=== PATIENT | female | born 1975 | race Caucasian/White ===

== ENCOUNTER 2021-09-17 00:32 | Emergency (ER) | payer MEDICARE, SELFPAY ==
--- NOTE | ~2021-09-17 | XR_ITS ---
EXAMINATION: XR wrist RT min 3V, XR hand RT min 3V EXAM DATE: 09/17/2021 04:53 INDICATION: pain status post fall, SWELLING . TECHNIQUE: Right hand frontal, lateral and oblique projections obtained and reviewed. Right wrist fro ntal, frontal with ulnar deviation, oblique and lateral projections obtained and reviewed. There is no prior study for comparison. FINDINGS: There is acute closed posttraumatic nondisplaced right radial distal metaphyseal fracture, overlying swelling. This extends into the distal radial ulnar joint, possibly into the radiocarpal brandie int. There is swelling overlying the dorsal aspect of the hand, the metacarpal bones without a metaca rpal fracture identified. Right wrist scapholunate joint space is maintained. IMPRESSION: Right radial distal metaphyseal acute fracture into DRUJ, possibly radiocarpal joint as well. Hand swelling. Reviewed, dictated and finalized at location . TUFTER IMPRESSION: Right radial distal metaphyseal acute fracture into DRUJ, possibly radiocarpal joint as well. Hand swelling.
--- NOTE | ~2021-09-17 | XR_ITS ---
EXAMINATION: XR knee RT 3V EXAM DATE: 09/17/2021 04:53 INDICATION: pain status post fall . TECHNIQUE: Three projections of the right knee. There is no prior study for comparison. FINDINGS: No evidence osteochondral defect or joint body in the right knee joint. There are no acut e right knee fractures or dislocations identified. There is no subcutaneous gas. There is soft tissu e swelling over the knee anteriorly. No joint effusion. There are no radiopaque foreign bodies. IMPRESSION: 1. XR knee RT 3V exam without acute osseous findings. Reviewed, dictated and finalized at location G. T GROWER
[2021-09-17 00:38] VITALS: BP 131/82; PULSE 110; RESP 20; TEMP 36.3; O2SAT 97
[2021-09-17 03:58] VITALS: BP 134/75; PULSE 115; RESP 18; O2SAT 100
--- NOTE | 2021-09-17 05:07 | ED_ITS ---
HPI - General Adult General Chief complaint: Extremity Injury, Upper Stated complaint: fall - right wrist/hand injury Time Seen by Provider: 09/17/21 04:13 History of Present Illness HPI narrative: Patient 46-year-old female presents the emergency department with chief complaint of right hand/wrist pain. Patient reports that she tripped and fell landed on her right outstretched hand reports that she has swelling and pain in the dorsum of the right hand and reports she has pain in the right wrist the patient also reports she has bruising in her right knee. Patient states pain is worse with movement and improved with rest. Review of Systems Review of Systems: A 10 system review of systems was completed on the patient and is negative except for what is stated in the HPI. Nursing and ancillary documentation was reviewed. Exam Narrative: GENERAL: Well-appearing, well-nourished, and in no acute distress. HEAD: Normocephalic, atraumatic. EYES: PERRLA and EOMI. ENT: Nares clear, no rhinorrhea or epistaxis. Mucous membranes moist. NECK: Supple. CHEST: Clear to auscultation. No respiratory distress. HEART: Regular rate and rhythm. No murmur heard. Normal peripheral pulses. ABDOMEN: Soft, nontender, nondistended, normal active bowel sounds. EXTREMITIES: Normal range of motion. No edema. Right hand there is contusion present on the dorsum of the right hand there is tenderness to palpation of the right wrist. Right knee there is a bruise on the dorsum of the knee the patella. SKIN: Warm, dry, no rash. NEURO: No focal deficits. Alert and oriented x3. PSYCH: Normal mood and affect. Course Course Emergency Course: Hand and wrist x-ray shows evidence of a nondisplaced distal radius fracture Knee x-ray shows no evidence of fracture Vital Signs Vital signs: Vital Signs Temperature 36.3 C L 09/17/21 00:38 Pulse Rate 110 H 09/17/21 00:38 Respiratory Rate 20 09/17/21 00:38 Blood Pressure 131/82 09/17/21 00:38 Pulse Oximetry 97 09/17/21 00:38 Temperature 36.3 C L 09/17/21 00:38 Pulse Rate 115 H 09/17/21 03:58 Respiratory Rate 18 09/17/21 03:58 Blood Pressure 134/75 09/17/21 03:58 Pulse Oximetry 100 09/17/21 03:58 Medical Decision Making Vital Signs Vital Signs: Vital Signs Temperature 36.3 C L 09/17/21 00:38 Pulse Rate 110 H 09/17/21 00:38 Respiratory Rate 20 09/17/21 00:38 Blood Pressure 131/82 09/17/21 00:38 Pulse Oximetry 97 09/17/21 00:38 Temperature 36.3 C L 09/17/21 00:38 Pulse Rate 115 H 09/17/21 03:58 Respiratory Rate 18 09/17/21 03:58 Blood Pressure 134/75 09/17/21 03:58 Pulse Oximetry 100 09/17/21 03:58 Discharge Plan Discharge Clinical Impression: Contusion of hand, right, Distal radius fracture, right, Contusion of knee, right Patient Disposition: Home, Self-Care Condition: Stable Instructions: Antibiotic Form, Wrist Fracture in Adults (ED), How to Use a Sling (ED), Hematoma (ED), Splint Care (ED) Follow-up/Referrals: Jeff Bee MD [Physician] - [facility],Fadi Rothman MD [Primary Care Provider] - Time of Disposition: 05:11
--- NOTE | 2021-09-23 07:04 | PC.NURSE ---
RBVO for 09/17/21 @ [address] rico: short arm splint rt side prior to d/c
== END 2021-09-17 05:45 | disposition home or self-care (01) ==
PROVIDERS: Emergency Provider Emergency Medicine; PCP Family Medicine
DX: S59.291A Other physeal fracture of lower end of radius, right arm, initial encounter for closed fracture (principal); S60.221A Contusion of right hand, initial encounter; S80.01XA Contusion of right knee, initial encounter; W01.0XXA Fall on same level from slipping, tripping and stumbling without subsequent striking against object, initial encounter
CPT/HCPCS: 29125; 73110; 73130; 73562; 99284; A4565

== ENCOUNTER 2022-07-12 15:24 | Inpatient (IN) | payer MEDICARE, SELFPAY ==
[2022-07-12] VITALS (24 sets, daily range): BP systolic 118–161; BP diastolic 80–95; PULSE 69–95; RESP 12–19; TEMP 36.3–37.2; O2SAT 83–100; BMI 16.8
--- NOTE | ~2022-07-12 | US_ITS ---
EXAMINATION: US abdomen limited DATE: 07/13/2022 12:20 INDICATION: Abnormal liver function tests. TECHNIQUE: Multiple grayscale and Doppler ultrasound images of the abdomen were obtained. COMPARISON: None FINDINGS: The visualized portions of the head and body of the pancreas are normal. The liver is gaston l without focal lesion. No liver surface nodularity. There is normal flow in main portal vein. The ga llbladder is absent. The common duct is normal and measures 4 mm. IMPRESSION: 1. Normal right upper quadrant ultrasound status post cholecystectomy. Reviewed, dictated and finalized at location A.
[2022-07-12 16:20] LABS: Alanine Aminotransferase 40 U/L (6-35); Albumin Level 3.8 g/dL (3.5-5.1); Alkaline Phosphatase 154 U/L (38-126); Anion Gap 15 mmol/L (8-16); Aspartate Amino Transferase 45 U/L (14-36); Bilirubin,Total 0.2 mg/dL (0.2-1.3); Blood Urea Nitrogen 25 mg/dL (7-17); Calcium 9.2 mg/dL (8.4-10.2); Carbon Dioxide 39 mmol/L (22-30); Chloride 87 mmol/L (98-107); Estimated CRCL calculation 58 ml/min; Estimated Glomerular Filt Rate > 60; Glucose 84 mg/dL (65-110); Potassium < 2.0 mmol/L (3.4-5.0); Sodium 141 mmol/L (137-145)
--- NOTE | 2022-07-12 16:21 | ECG_ITS ---
Measurements Intervals [place] Rate: 89 P: 70 [place]: 130 QRS: 71 QRSD: 102 T: 68 QT: 435 QTc: 531 Interpretive Statements SINUS RHYTHM NONSPECIFIC ST & T-WAVE ABNORMALITY-DIFFUSE LEADS PROLONGED QT INTERVAL BASELINE ARTIFACT- I, III, AVR, AVL, AVF, V2-V2 ABNORMAL ECG NO PREVIOUS ECG AVAILABLE FOR COMPARISON Electronically Signed On 07-12-2022 21:04:00 CDT by Clarence Mandel D.O.
[2022-07-12] MEDS: POTASSIUM CHLORIDE 20 MEQ PACKET (FOR LIQUID) 80 MEQ PO (16:38)
--- NOTE | 2022-07-12 16:39 | ED.GENADULT ---
HPI - General Adult General Chief complaint: Recheck/Abnormal Lab/Rx Stated complaint: low potassium level Time Seen by Provider: 07/12/22 16:20 History of Present Illness HPI narrative: 47-year-old female with history of viral meningitis, persistent daily headaches, IBS presented the emergency room for evaluation of a low potassium. Patient had follow-up with her primary care physician with routine labs and was found to have low potassium. Patient states that she does have multiple medical issues that bother her daily but felt that in general she was feeling fine. Patient states she was having some lower extremity edema so she did take a Lasix pill this morning patient states she does not take Lasix daily. Patient reports she has had previous issues with low potassium and stated that the last time she had a potassium infusion at worsened her nerve pain . Related Data Home Medications Medication Instructions Recorded Confirmed Unable to Obtain Home Medications 10/04/21 10/11/21 Allergies Allergy/AdvReac Type Severity Reaction Status Date / Time No Known Allergies Allergy Verified 07/12/22 15:25 Review of Systems Review of Systems: CONSTITUTIONAL: Denies fever, chills, or sweats. EYES: Denies visual changes, redness, or discharge. ENT: Denies rhinorrhea, congestion, sore throat, or otalgia. CARDIOVASCULAR: Denies chest pain, palpitations, or edema. RESPIRATORY: Denies cough or dyspnea. GASTROINTESTINAL: Denies abdominal pain, nausea, vomiting, or diarrhea. GENITOURINARY: Denies dysuria or hematuria. SKIN: Denies rash or itching. MUSCULOSKELETAL: Denies back pain, joint pain, or myalgia. NEUROLOGIC: Denies headache, numbness, or weakness. [facility] Past Medical History Medical History Abdominal pain Anxiety Chronic headaches Claustrophobia Constipation Depression Diarrhea DVT (deep venous thrombosis) Gastric ulcer History of anesthesia problem Hx of viral meningitis IBS (irritable bowel syndrome) Insomnia MRSA (methicillin resistant staph aureus) culture positive Nausea & vomiting Opioid dependence Pneumonia Vision changes Family History Family History Other Arthritis HLD (hyperlipidemia) Heart disease Hypertension Kidney disorder Social History Social History Alcohol intake: current Substance use: never Substance use type: does not use Additional occupation/education comments: Disabled Gender identity (if verbalized by the patient): Female Exam Narrative: APPEARANCE: Well appearing, no pain, no distress, well-nourished. HEAD: normocephalic, atraumatic. EYES: PERRLA/EOMI, conjunctivae clear. NOSE: Normal no drainage NECK: Supple. No adenopathy, no masses. RESPIRATORY: Airway patent, respirations nonlabored. Clear to auscultation bilaterally, no rales, rhonchi, wheezing. CARDIOVASCULAR: Regular rate and rhythm without murmurs rubs or gallops. ABDOMINAL: Soft, nontender, nondistended, normal bowel sounds MUSCULOSKELETAL: Moves all extremities. Strength/ROM intact, No edema, No calf tenderness. NEURO: Alert. Cranial nerves II through XII intact. Grossly intact SKIN: Warm, dry. Normal Color Course Course Emergency Course: Patient's potassium was repleted both orally and through IV. Patient does have a leukocytosis of 17.2. Patient is afebrile. Patient's CMP is within normal limits and UA shows no evidence of urinary tract infection. Case was discussed with hospitalist patient was accepted to the IMU. Vital Signs Vital signs: Vital Signs Temperature 98.9 F 07/12/22 15:37 Pulse Rate 85 07/12/22 15:37 Respiratory Rate 14 07/12/22 15:37 Blood Pressure 156/80 H 07/12/22 15:37 Pulse Oximetry 97 07/12/22 15:37 Oxygen Delivery Room Air 07/12/22 15:37 Temperature 98.9 F 07/12/22 15:37 P
[2022-07-12 16:48] LABS: Basophils Absolute Auto 0.1 K/mm3 (0.0-0.1); Basophils Percent Auto 0.6 % (0.2-1.2); Eosinophils Absolute Auto 0.3 K/mm3 (0-0.3); Eosinophils Percent Auto 1.6 % (0-4.4); Hematocrit 36.5 % (37.0-47.0); Hemoglobin 11.5 g/dL (12.0-15.0); Immature Granulocyte Absolute 0.08 K/mm3 (0.00-0.031); Immature Granulocyte Percent A 0.5 % (0-0.5); Lymphocytes Absolute Auto 3.22 K/mm3 (0.9-3.2); Lymphocytes Percent Auto 18.8 % (18.3-44.2); Mean Corpuscular HGB Conc 31.5 g/dl (32-36); Mean Corpuscular Hemoglobin 29.7 pg (26-34); Mean Corpuscular Volume 94.3 fl (80-100); Mean Platelet Volume 9.2 fl (7.4-10.4); Monocytes Absolute Auto 1.2 K/mm3 (0.1-0.6); Monocytes Percent Auto 7.2 % (2.6-8.5); Neutrophils Absolute Auto 12.2 K/mm3 (1.3-6.7); Neutrophils Percent Auto 71.3 % (45.5-73.1); Platelet Count Result 492 k/mm3 (150-375); Red Blood Count 3.87 M/mm3 (4.2-5.4); Red Cell Distribution Width 15.6 % (11.5-14.5); White Blood Count 17.2 K/mm3 (4.5-10.0)
[2022-07-12 17:03] LABS: Alanine Aminotransferase 40 U/L (6-35); Albumin Level 3.7 g/dL (3.5-5.1); Alkaline Phosphatase 150 U/L (38-126); Aspartate Amino Transferase 51 U/L (14-36); Bilirubin,Total 0.2 mg/dL (0.2-1.3); Blood Urea Nitrogen 25 mg/dL (7-17); Carbon Dioxide > 40 mmol/L (22-30); Chloride 87 mmol/L (98-107); Estimated CRCL calculation 52 ml/min; Estimated Glomerular Filt Rate 59; Glucose 97 mg/dL (65-110); Magnesium 1.8 mg/dL (1.6-2.3); Phosphorus 4.1 mg/dL (2.5-4.5); Potassium < 2.0 mmol/L (3.4-5.0); Sodium 142 mmol/L (137-145)
[2022-07-12 17:28] LABS: Appearance Urine Clear (Clear); Bilirubin Urine Negative (Negative); Blood Urine 2+ (Negative); Color Urine Yellow (Yellow); Glucose Urine UA Negative (Negative); Ketones Urine Negative (Negative); Leukocyte Esterase Ur Negative LEU/UL (Negative); Nitrate Urine Negative (Negative); Protein Urine Trace mg/dL (Negative); Specific Grav Ur 1.015 (1.001-1.035); Urobilinogen Urine 0.2 mg/dL (<2.0)
[2022-07-12 17:37] LABS: Mucus Urine Rare /lpf; Squamous Epithelial Cell Urine Rare /hpf (Few); WBC Urine 0-3 /hpf
[2022-07-12] MEDS: KCL 20 MEQ/SW 100 ML 100 ML 50 MEQ IVPB (17:39)
[2022-07-12 17:42] LABS: Add Urine Microscopic? YES
[2022-07-12 17:54] LABS: Thyroid Stimulating Hormone Reflex 0.724 uIU/mL (0.465-4.68)
--- NOTE | 2022-07-12 19:17 | PM.IMHP ---
H&P: HPI History of Present Illness Date/Time: 07/12/22 19:17 Chief Complaint: Abnormal lab Narrative: This is a 47-year-old female patient has a history of viral meningitis with a residual of daily headaches. The patient stated that she occasionally takes Lasix for her lower extremity edema. She took Lasix earlier this morning. The patient had a follow-up visit with her primary care doctor who ran some routine labs the patient stated that she has had previous issues with low potassium. The patient stated she has chronic nerve pain from her meningitis. Her white count is found to be 17.2. H&H 11.5 and 36.5. Her potassium initially was 2.0. She was given IV potassium and oral potassium. Repeat potassium was listened 2.0. AST is 51 ALT is 40 alkaline phosphatase 150. She is negative for COVID. She denies any nausea vomiting or diarrhea. Patient is being admitted to inpatient status on the date of service of 07/12/2022. Review of Systems Review of Systems: See HPI All systems reviewed & are unremarkable except as noted in HPI and below Constitutional: Constitutional: Reports as per HPI and Reports no additional constitutional complaints Eyes: Eyes: Reports as per HPI and Reports no additional eye complaints ENT: Reports system reviewed and no additional complaints, except as documented and Reports Normal hearing present Cardiovascular: Cardiovascular: Reports no additional cardiovascular complaints Respiratory: Respiratory: Reports no additional respiratory complaints and Reports no additional respiratory complaints Gastrointestinal: Gastrointestinal: Reports as per HPI and Reports no additional gastrointestinal complaints Musculoskeletal: Musculoskeletal: Reports no additional musculoskeletal complaints Integumentary/Breasts: Skin/Breast: Reports system reviewed and no additional complaints, except as docu and Reports as per HPI Neurologic: Reports system reviewed and no additional complaints, except as documented, Reports as per HPI and Reports Normal hearing present Psychiatric: Psychiatric: Reports no additional psychiatric complaints and Reports as per HPI Endocrine: Endocrine: Reports no additional endocrine complaints Hematologic/Lymphatic: Hematologic/Lymphatic: Reports no additional hematologic/lymphatic complaints Allergic/Immunologic: Allergic/Immunologic: Reports no additional allergic/immunologic complaints [facility] Past Medical History Medical History Anxiety Chronic headaches 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 Claustrophobia Constipation Depression Diarrhea DVT (deep venous thrombosis) Edema Gastric ulcer History of anesthesia problem Hx of viral meningitis IBS (irritable bowel syndrome) Insomnia MRSA (methicillin resistant staph aureus) culture positive Nausea & vomiting Opioid dependence Pneumonia PTSD (post-traumatic stress disorder) Vision changes Surgical History Surgical History H/O gastric bypass H/O hernia repair H/O hysterectomy with oophorectomy S/P cholecystectomy Family History Family History Other Arthritis HLD (hyperlipidemia) Heart disease Hypertension Kidney disorder Social History Social History (Updated 07/12/22 @ 21:29 by Urmila Albarran NP) Social History: She lives with her parents . She is disabled. Her dad is her poa. She is single and has no children. She denies any alcohol marijuana or tobacco. Code status full code Alcohol intake: current Substance use: never Substance use type: does not use Additional occupation/education comments: Disabled Gender identity (if verbalized by the patient): Female Meds Home Medications and Allergies Home Medications Medication Instructions Recorded Confirmed Type albuterol sulfate 90 mcg/actuat
[2022-07-12 21:13] LABS: SARS-CoV-2 RNA PCR Negative
--- NOTE | 2022-07-12 22:56 | ADMGEN ---
This patient, Abril Miller, was admitted to IMU Room 206-02 at 2256. Patient/family oriented to hospital policies and general routines including ID bracelet, bed and alarms, visiting hours, pain management, procedures, bathroom and other care routines, personal items, smoking policy, room service/diet, and visiting hours. Information on how to activate the Rapid Response Team has been discussed. Patient/Family are encouraged to report perceived risks to care and to ask questions if they do not understand what they are told or what they should do.
[2022-07-12 23:57] LABS: Blood Urea Nitrogen 19 mg/dL (7-17); Calcium 7.9 mg/dL (8.4-10.2); Carbon Dioxide > 40 mmol/L (22-30); Chloride 91 mmol/L (98-107); Estimated CRCL calculation 58 ml/min; Estimated Glomerular Filt Rate > 60; Glucose 93 mg/dL (65-110); Potassium < 2.0 mmol/L (3.4-5.0); Sodium 141 mmol/L (137-145)
[2022-07-13] VITALS (13 sets, daily range): BP systolic 127–159; BP diastolic 68–93; PULSE 64–88; RESP 12–22; TEMP 36.3–36.9; O2SAT 95–100; BMI 16.8
[2022-07-13] MEDS: oxyCODONE HCL (*CRX) 5 MG TAB IR 10 MG PO ×4 (00:39→20:21)
[2022-07-13] MEDS: traMADol HCL (*CRX) 50 MG TABLET PO ×4 (00:39→20:20)
[2022-07-13] MEDS: POTASSIUM CHLORIDE INJ 40 MEQ in SODIUM CHLORIDE 0.9% IV 500 ML 130 MEQ IVPB ×3 (00:40→22:03)
[2022-07-13] MEDS: POTASSIUM CHLORIDE 20 MEQ TABLET 80 MEQ PO ×2 (00:40→22:03)
[2022-07-13 00:52] LABS: Hepatitis B Surface Antigen Negative (Negative)
[2022-07-13 00:58] LABS: HAV RESULT Negative (Negative); Hepatitis B Core IgM Result Negative (Negative)
[2022-07-13 01:10] LABS: Hepatitis C Virus Antibody Negative (Negative)
[2022-07-13 05:01] LABS: Basophils Absolute Auto 0.1 K/mm3 (0.0-0.1); Basophils Percent Auto 0.8 % (0.2-1.2); Eosinophils Absolute Auto 0.3 K/mm3 (0-0.3); Eosinophils Percent Auto 2.8 % (0-4.4); Hematocrit 30.3 % (37.0-47.0); Hemoglobin 9.5 g/dL (12.0-15.0); Immature Granulocyte Absolute 0.05 K/mm3 (0.00-0.031); Immature Granulocyte Percent A 0.4 % (0-0.5); Lymphocytes Absolute Auto 3.31 K/mm3 (0.9-3.2); Lymphocytes Percent Auto 28.4 % (18.3-44.2); Mean Corpuscular HGB Conc 31.4 g/dl (32-36); Mean Corpuscular Hemoglobin 29.5 pg (26-34); Mean Corpuscular Volume 94.1 fl (80-100); Mean Platelet Volume 9.3 fl (7.4-10.4); Monocytes Absolute Auto 0.8 K/mm3 (0.1-0.6); Monocytes Percent Auto 6.9 % (2.6-8.5); Neutrophils Absolute Auto 7.1 K/mm3 (1.3-6.7); Neutrophils Percent Auto 60.7 % (45.5-73.1); Platelet Count Result 442 k/mm3 (150-375); Red Blood Count 3.22 M/mm3 (4.2-5.4); Red Cell Distribution Width 15.5 % (11.5-14.5); White Blood Count 11.7 K/mm3 (4.5-10.0)
[2022-07-13 05:12] LABS: Alanine Aminotransferase 34 U/L (6-35); Albumin Level 3.1 g/dL (3.5-5.1); Alkaline Phosphatase 126 U/L (38-126); Anion Gap 8 mmol/L (8-16); Aspartate Amino Transferase 40 U/L (14-36); Bilirubin,Total 0.2 mg/dL (0.2-1.3); Blood Urea Nitrogen 17 mg/dL (7-17); Calcium 7.5 mg/dL (8.4-10.2); Carbon Dioxide 38 mmol/L (22-30); Chloride 96 mmol/L (98-107); Estimated CRCL calculation 60 ml/min; Estimated Glomerular Filt Rate > 60; Glucose 112 mg/dL (65-110); Lactate Dehydrogenase 177 U/L (120-246); Lipase 30 U/L (23-300); Magnesium 1.9 mg/dL (1.6-2.3); Phosphorus 3.1 mg/dL (2.5-4.5); Potassium 2.2 mmol/L (3.4-5.0); Sodium 142 mmol/L (137-145)
[2022-07-13 06:29] LABS: Thyroid Stimulating Hormone Reflex 0.934 uIU/mL (0.465-4.68)
[2022-07-13] MEDS: PANTOPRAZOLE 40 MG TABLET PO ×2 (09:04→17:30)
[2022-07-13] MEDS: POTASSIUM CHLORIDE INJ 10 MEQ in DEXTROSE 5%/0.45% SOD CHL 1,000 ML 100 MEQ IV CONT (09:04)
[2022-07-13] MEDS: ENOXAPARIN 40 MG/0.4 ML SYRINGE SUB-Q (09:04)
[2022-07-13] MEDS: PROCHLORPERAZINE EDISYLATE 10 MG/2 ML VIAL IV PUSH (13:05)
--- NOTE | 2022-07-13 14:21 | PM.IMPN ---
Progress Note: A&P Assessment and Plan (1) Acute hypokalemia: Code(s): E87.6 - Hypokalemia Status: Acute Assessment and Plan: -severe hypokalemia -the patient had been taking Lasix p.r.n. -replace potassium as needed. Magnesium 1.8-1.9. -patient denies any nausea vomiting or diarrhea Severe metabolic alkalosis likely related to dehydration (2) Depression: Code(s): F32.A - Depression, unspecified Status: Acute Assessment and Plan: -the patient stated that she was taking SSRIs for her chronic nerve pain and that the SSRIs made her depressed. She could no longer tolerate SSRIs. (3) Anxiety: Code(s): F41.9 - Anxiety disorder, unspecified Status: Acute Assessment and Plan: -the patient stated she has a lot of anxiety but cannot take SSRIs. (4) 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: Code(s): M79.18 - Myalgia, other site; G89.29 - Other chronic pain; G98.8 - Other disorders of nervous system Status: Acute Assessment and Plan: -the patient is on fentanyl at home, oxycodone and tramadol. 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 (5) IBS (irritable bowel syndrome): Code(s): K58.9 - Irritable bowel syndrome without diarrhea Status: Acute Assessment and Plan: Continue with pantoprazole. (6) Insomnia: Code(s): G47.00 - Insomnia, unspecified Status: Acute Assessment and Plan: The patient stated that she cannot sleep at night and is usually nocturnal. (7) Asthma: Code(s): J45.909 - Unspecified asthma, uncomplicated Status: Acute Assessment and Plan: Continue with albuterol inhaler Subjective Date/time seen: 07/13/22 14:21 Interval history: HPI:This is a 47-year-old female patient has a history of viral meningitis with a residual of daily headaches.? The patient stated that she occasionally takes Lasix for her lower extremity edema.? She took Lasix earlier this morning.? The patient had a follow-up visit with her primary care doctor who ran some routine labs the patient stated that she has had previous issues with low potassium.? The patient stated she has chronic nerve pain from her meningitis.? Her white count is found to be 17.2.? H&H 11.5 and 36.5.? Her potassium initially was 2.0.? She was given IV potassium and oral potassium.? Repeat potassium was listened 2.0.? AST is 51 ALT is 40 alkaline phosphatase 150.? She is negative for COVID.? She denies any nausea vomiting or diarrhea.? Patient is being admitted to inpatient status on the date of service of 07/12/202207/13/2022: She had an episode of nausea and vomiting this morning. She denies any abdominal pain. Nausea and vomiting has resolved since then. She had a bypass surgery in the past Review of Systems Review of Systems: All systems reviewed & are unremarkable except as noted in HPI and below Exam Narrative: APPEARANCE: Well appearing, no pain, no distress, well-nourished. HEAD: normocephalic, atraumatic. EYES: PERRLA/EOMI, conjunctivae clear. NOSE: Normal no drainage NECK: Supple. No adenopathy, no masses. RESPIRATORY: Airway patent, respirations nonlabored. Clear to auscultation bilaterally, no rales, rhonchi, wheezing. CARDIOVASCULAR: Regular rate and rhythm without murmurs rubs or gallops. ABDOMINAL: Soft, nontender, nondistended, normal bowel sounds MUSCULOSKELETAL: Moves all extremities. Strength/ROM intact, No edema, No calf tenderness. NEURO: Alert. Cranial nerves II through XII intact.? Grossly intact SKIN: Warm, dry. Normal Color Objective Data Vital Signs Vital Signs: Vital Signs - 24 hr 07/12/22 15:37 07/12/22 17:40 07/12/22 16:39 Temperature 98.9 F Pulse Rate 85 86 85 Respiratory Rate 14 18 13 Blood Pressure 156/80 H 118/89 Pulse Oximetry 97 99 83 L Oxygen Delivery Room Air 07/12/22 16:40 07/12/22 16:45 07/12/22 16:46 Temperature Pulse Rate 95 90 92
[2022-07-13] MEDS: POTASSIUM CHLORIDE 20 MEQ TABLET 40 MEQ PO (17:30)
[2022-07-13 20:25] LABS: Potassium 2.2 mmol/L (3.4-5.0)
[2022-07-14] VITALS (9 sets, daily range): BP systolic 130–136; BP diastolic 57–85; PULSE 71–99; RESP 16–24; TEMP 36.3–36.6; O2SAT 97–100
[2022-07-14] MEDS: oxyCODONE HCL (*CRX) 5 MG TAB IR 10 MG PO ×3 (02:38→12:25)
[2022-07-14] MEDS: traMADol HCL (*CRX) 50 MG TABLET PO ×2 (02:39→06:42)
[2022-07-14] MEDS: POTASSIUM CHLORIDE INJ 10 MEQ in DEXTROSE 5%/0.45% SOD CHL 1,000 ML 100 MEQ IV CONT (04:47)
[2022-07-14 05:36] LABS: Alanine Aminotransferase 31 U/L (6-35); Albumin Level 3.2 g/dL (3.5-5.1); Alkaline Phosphatase 125 U/L (38-126); Anion Gap 8 mmol/L (8-16); Aspartate Amino Transferase 35 U/L (14-36); Bilirubin,Total 0.2 mg/dL (0.2-1.3); Blood Urea Nitrogen 11 mg/dL (7-17); Carbon Dioxide 30 mmol/L (22-30); Chloride 105 mmol/L (98-107); Estimated CRCL calculation 87 ml/min; Estimated Glomerular Filt Rate > 60; Glucose 105 mg/dL (65-110); Magnesium 2.1 mg/dL (1.6-2.3); Potassium 3.1 mmol/L (3.4-5.0); Sodium 143 mmol/L (137-145)
[2022-07-14 05:41] LABS: Basophils Absolute Auto 0.1 K/mm3 (0.0-0.1); Basophils Percent Auto 1.1 % (0.2-1.2); Eosinophils Absolute Auto 0.4 K/mm3 (0-0.3); Eosinophils Percent Auto 3.8 % (0-4.4); Hematocrit 30.9 % (37.0-47.0); Hemoglobin 9.4 g/dL (12.0-15.0); Immature Granulocyte Absolute 0.06 K/mm3 (0.00-0.031); Immature Granulocyte Percent A 0.6 % (0-0.5); Lymphocytes Absolute Auto 2.52 K/mm3 (0.9-3.2); Lymphocytes Percent Auto 26.2 % (18.3-44.2); Mean Corpuscular HGB Conc 30.4 g/dl (32-36); Mean Corpuscular Hemoglobin 29.7 pg (26-34); Mean Corpuscular Volume 97.5 fl (80-100); Mean Platelet Volume 9.5 fl (7.4-10.4); Monocytes Absolute Auto 0.8 K/mm3 (0.1-0.6); Monocytes Percent Auto 8.2 % (2.6-8.5); Neutrophils Absolute Auto 5.8 K/mm3 (1.3-6.7); Neutrophils Percent Auto 60.1 % (45.5-73.1); Platelet Count Result 454 k/mm3 (150-375); Red Blood Count 3.17 M/mm3 (4.2-5.4); Red Cell Distribution Width 15.5 % (11.5-14.5); White Blood Count 9.6 K/mm3 (4.5-10.0)
[2022-07-14 06:51] LABS: Cortisol Random 8.83 ug/dL
[2022-07-14] MEDS: fentaNYL (*CRX) 75 MCG PATCH TRANSDERM (08:13)
[2022-07-14] MEDS: PANTOPRAZOLE 40 MG TABLET PO (08:13)
[2022-07-14] MEDS: POTASSIUM CHLORIDE 20 MEQ TABLET 40 MEQ PO ×2 (08:15→14:02)
[2022-07-14] MEDS: ENOXAPARIN 40 MG/0.4 ML SYRINGE SUB-Q (09:13)
[2022-07-14] MEDS: PROCHLORPERAZINE EDISYLATE 10 MG/2 ML VIAL IV PUSH (12:24)
[2022-07-14 12:31] LABS: Potassium 2.9 mmol/L (3.4-5.0)
--- NOTE | 2022-07-14 13:16 | PM.DS ---
DS: Admitting Diagnosis Discharge Date 07/14/2022 Admitting Diagnosis hypokalemia DS: Discharge Diagnosis Discharge Diagnosis (1) Acute hypokalemia: Code(s): E87.6 - Hypokalemia Status: Acute (2) Depression: Code(s): F32.A - Depression, unspecified Status: Acute (3) Anxiety: Code(s): F41.9 - Anxiety disorder, unspecified Status: Acute (4) 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: Code(s): M79.18 - Myalgia, other site; G89.29 - Other chronic pain; G98.8 - Other disorders of nervous system Status: Acute (5) IBS (irritable bowel syndrome): Code(s): K58.9 - Irritable bowel syndrome without diarrhea Status: Acute (6) Insomnia: Code(s): G47.00 - Insomnia, unspecified Status: Acute (7) Asthma: Code(s): J45.909 - Unspecified asthma, uncomplicated Status: Acute DS: Summary Hospital Course Reason for hospitalization: This is a 47-year-old female patient has a history of viral meningitis with a residual of daily headaches.? The patient stated that she occasionally takes Lasix for her lower extremity edema.? She took Lasix earlier this morning.? The patient had a follow-up visit with her primary care doctor who ran some routine labs the patient stated that she has had previous issues with low potassium.? The patient stated she has chronic nerve pain from her meningitis.? Her white count is found to be 17.2.? H&H 11.5 and 36.5.? Her potassium initially was 2.0.? She was given IV potassium and oral potassium.? Repeat potassium was listened 2.0.? AST is 51 ALT is 40 alkaline phosphatase 150.? She is negative for COVID.? She denies any nausea vomiting or diarrhea.? Patient is being admitted to inpatient status on the date of service of 07/12/2022. Hospital Course: # acute severe hypokalemia: -the patient had been taking hydrochlorothiazide p.r.n. -replace potassium as needed. replaced with IV potassium and several doses. Magnesium 1.8-1.9. -patient denies any nausea vomiting or diarrhea Severe metabolic alkalosis likely related to dehydration Which can be contributed factor for hypokalemia as well She will be sent home on potassium supplement and recheck BMP in 1 week. PCP to follow # depression: -the patient stated that she was taking SSRIs for her chronic nerve pain and that the SSRIs made her depressed.? She could no longer tolerate SSRIs. # anxiety disorder: -the patient stated she has a lot of anxiety but cannot take SSRIs. # chronic musculoskeletal pain due to disorder nervous system: -the patient is on fentanyl at home, oxycodone and tramadol.? 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 # irritable bowel syndrome: Continue with pantoprazole. # insomnia: The patient stated that she cannot sleep at night and is usually nocturnal. # asthma: Continue with albuterol inhaler Time Spent with Patient Time attestation: Total time spent providing and/or coordinating discharge services: 25 minutes Exam Narrative: APPEARANCE: Well appearing, no pain, no distress, well-nourished. HEAD: normocephalic, atraumatic. EYES: PERRLA/EOMI, conjunctivae clear. NOSE: Normal no drainage NECK: Supple. No adenopathy, no masses. RESPIRATORY: Airway patent, respirations nonlabored. Clear to auscultation bilaterally, no rales, rhonchi, wheezing. CARDIOVASCULAR: Regular rate and rhythm without murmurs rubs or gallops. ABDOMINAL: Soft, nontender, nondistended, normal bowel sounds MUSCULOSKELETAL: Moves all extremities. Strength/ROM intact, No edema, No calf tenderness. NEURO: Alert. Cranial nerves II through XII intact.? Grossly intact SKIN: Warm, dry. Normal Color DS: Data Data Completed and Pending Labs on day of discharge: Labs from last 24 hours 07/14/22 07/14/22 07/14/22 12:42 12:09 04:58 WBC RBC Hgb Hct MCV MCH MCHC RDW Plt Count MPV Immature Gran % (Auto)
[2022-07-14 13:28] LABS: SARS-CoV-2 RNA PCR Negative
== END 2022-07-14 14:24 | disposition home or self-care (01) | DRG 641 ==
LOC: ANHED 19:14 → ANHIMU 19:14
PROVIDERS: Nurse Practitioner; Admitting Provider Family Medicine; Emergency Provider Emergency Medicine; PCP Family Medicine; Visit Provider Internal Medicine
DX: E87.6 Hypokalemia (principal); J45.909 Unspecified asthma, uncomplicated; M79.18 Myalgia, other site; K58.9 Irritable bowel syndrome, unspecified; G47.00 Insomnia, unspecified; F41.9 Anxiety disorder, unspecified; F32.A Depression, unspecified; Z86.718 Personal history of other venous thrombosis and embolism; Z98.84 Bariatric surgery status; Z90.49 Acquired absence of other specified parts of digestive tract; Z90.710 Acquired absence of both cervix and uterus; Z90.721 Acquired absence of ovaries, unilateral; Z82.49 Family history of ischemic heart disease and other diseases of the circulatory system; Z79.51 Long term (current) use of inhaled steroids; Z79.891 Long term (current) use of opiate analgesic; Z79.899 Other long term (current) drug therapy; E87.3 Alkalosis; Z86.61 Personal history of infections of the central nervous system; M79.2 Neuralgia and neuritis, unspecified; G89.29 Other chronic pain; E86.0 Dehydration; Z20.822 Contact with and (suspected) exposure to COVID-19
CPT/HCPCS: 36415; 76705; 80048; 80053; 80074; 81001; 81025; 82533; 83605; 83615; 83690; 83735; 84100; 84132; 84443; 85025; 93005; 99285; A9270; J0780; J1650; J3480; J7040; U0003; U0005